=== PATIENT | female | born 1985 | race Caucasian/White ===

== ENCOUNTER 2023-07-15 20:14 | Emergency (ER) | payer OTHER, SELFPAY ==
[2023-07-15 20:42] VITALS: BP 159/106; PULSE 121; RESP 18; TEMP 36.4; BMI 42.0
--- NOTE | 2023-07-15 20:44 | ED.GENADULT ---
HPI - General Adult General Chief complaint: General Medical Stated complaint: Drug test for new job Related Data Allergies Allergy/AdvReac Type Severity Reaction Status Date / Time No Known Allergies Allergy Verified 07/15/23 20:42 PMFSH Social History Social History Advance Directives: No Advance Directives Information Provided: Yes Physical Exam ED Vital Signs: Vital Signs - 24 hr 07/15/23 20:42 Temperature 97.6 F Pulse Rate 121 H Respiratory Rate 18 Blood Pressure 159/106 H Oxygen Delivery Method Room Air BMI result Body Mass Index 42.0 Course Course Course Narrative: This is a rapid medical exam performed by Alberta Arteaga NP: Additional HPI, ROS, PE not included below will be deferred to primary provider. Patient is a 38-year-old female presenting to the ED requesting a drug test. States that she is applying for a job next week and wants to voluntarily perform a drug screen prior. Plan: urine drug screen Medical Decision Making Lab Data Labs: Lab Results 07/15/23 Range/Units 23:23 Urine Opiates Screen Not Detected (Not Detect) Ur Buprenorphine Scrn Not Detected (Not Detect) ng/mL Ur Oxycodone Screen Not Detected (Not Detect) ng/mL Urine Methadone Screen Positive H (Not Detect) ng/mL Urine Fentanyl Screen Not Detected (Not Detect) Ur Barbiturates Screen Not Detected (Not Detect) Ur Phencyclidine Scrn Not Detected (Not Detect) Ur Amphetamines Screen Not Detected (Not Detect) U Benzodiazepines Scrn Not Detected (Not Detect) Urine Cocaine Screen Not Detected (Not Detect) U Marijuana (THC) Screen POSITIVE H (Not Detect) Discharge Plan Discharge Clinical Impression: Diagnosis unknown Patient Disposition: Left W/O Completing Treatment Discharge Date/Time: 07/16/23 01:27
[2023-07-15 23:41] LABS: Amphetamine Screen Urine Not Detected (Not Detect); Barbiturates, Urine Not Detected (Not Detect); Benzodiazepines Screen Urine Not Detected (Not Detect); Buprenorphine Scr Not Detected (Not Detect); Cannabinoid Screen Urine POSITIVE (Not Detect); Cocaine Screen Urine Not Detected (Not Detect); Fentanyl, urine Not Detected (Not Detect); Methadone Screen, Urine Positive (Not Detect); Opiate Screen Urine Not Detected (Not Detect); Oxycodone Screen Urine Not Detected (Not Detect); Phencyclidine Screen Urine Not Detected (Not Detect)
--- NOTE | 2023-07-16 01:25 | PC.NURSE ---
pt left after she checked her labs in the porthole
== END 2023-07-16 01:27 | disposition left against medical advice (07) ==
PROVIDERS: Registered Nurse Emergency; Emergency Provider Emergency Medicine; PCP Family Medicine
DX: Z02.1 Encounter for pre-employment examination (principal)
CPT/HCPCS: 80307; 99282